=== PATIENT | female | born 1995 | race Caucasian/White ===

== ENCOUNTER 2019-06-25 20:39 | Emergency (ER) | payer OTHER ==
[~2019-06-25] VITALS: Ht 157.5 cm; Wt 69.0 kg
--- OUTSIDE RECORDS SUMMARY | ~2019-06-25 | XMS ---
Demographics + + + | Address | [address] | | | [place] [address] | + + + | Home Phone | | + + + | Preferred Language | Unknown | + + + | Marital Status | Never | + + + | Mormonism Affiliation | Unknown | + + + | Race | White | + + + | Ethnic Group | Not or | + + + Author + + + | Author | [facility] | + + + | Organization | [facility] | + + + | Address | [address] | | | [place] [address] | + + + | Phone | | + + + Care Team Providers + + + + | Care Equipment Validation Engineer Name | Role | Phone | + + + + | Kandace Martin PCP | | + + + + | Magi Mejia | PreferredProvider | | + + + + Allergies and Adverse Reactions + + +-------+ | Name | Reaction | Notes | + + +-------+ | Codeine Sulfate | | | + + +-------+ Plan of Treatment Not available. Medications +--------+ | Active | +--------+ + + + + + + | Name | Start Date | Estimated | SIG | Comments | | | | Completion Date | | | + + + + + + | fluoxetine 20 | 03/19/2017 | | take 1 capsule | | | mg oral capsule | | | (20 mg) by oral | | | | | | route once | | | | | | daily in the | | | | | | evening for 30 | | | | | | days | | + + + + + + | pseudoephedrine | 03/20/2017 | 04/03/2017 | take 1 tablet | | | HCl 120 mg | | | (120 mg) by | | | oral tablet | | | oral route | | | extended | | | every 12 hours | | | release | | | as needed for | | | | | | 14 days | | + + + + + + +---------+ | | +---------+ + + + + + + | Name | Start Date | Expiration Date | SIG | Comments | + + + + + + | amoxicillin 500 | 02/23/2013 | 03/05/2013 | take 1 tablet | | | mg oral tablet | | | (500 mg) by | | | | | | oral route | | | | | | every 12 hours | | | | | | for 10 days | | + + + + + + | amoxicillin 875 | 03/24/2014 | 04/03/2014 | take 1 tablet | | | mg oral tablet | | | (875 mg) by | | | | | | oral route | | | | | | every 12 hours | | | | | | for 10 days | | + + + + + + | lactulose 10 | 06/05/2014 | 08/28/2014 | 30ml PO every | | | gram/15 mL oral | | | AM for 7 days. | | | solution | | | Then 15ml PO | | | | | | every AM for 21 | | | | | | days. | | + + + + + + Problem List + +--------+ + | Description | Status | Onset | + +--------+ + | SinusArrhythmia | Active | 05/10/2012 | + +--------+ + | Behavioral Problems | Active | 07/29/2012 | + +--------+ + | Learning Disability | Active | 07/29/2012 | + +--------+ + | Depression | Active | 07/29/2012 | + +--------+ + Vital Signs +-----+-----+-----+-----+-----+-----+-----+-----+-----+----+-----+-----+-----+-----+ | Tristin | Marcial | BP- | BP- | HR( | RR( | Tem | WT | HT | HC | BMI | BSA | BMI | O2 | | e | e | Sys | Lindsay | bpm | rpm | p | | | | | | | Sat | | | | (mm | (mm | ) | ) | | | | | | | Per | (%) | | | | [Hg | [Hg | | | | | | | | | yunier | | | | | ] | ]) | | | | | | | | | til | | | | | | | | | | | | | | | e | | +-----+-----+-----+-----+-----+-----+-----+-----+-----+----+-----+-----+-----+-----+ | 9/2 | 11: | 124 | 74 | 78 | 18 | 96. | 132 | 62. | | 23. | 1.6 | 72. | | | 1/2 | 54: | | mmH | bpm | rpm | 8 F | | 25 | | 95 | 2 | 5 % | | | 017 | 00 | mmH | g | | | | lbs | in | | kg/ | m2 | | | | | AM | g | | | | | | | | m2 | | | | +-----+-----+-----+-----+-----+-----+-----+-----+-----+----+-----+-----+-----+-----+ | 3/2 | 4:5 | 100 | 70 | 72 | 30 | 98. | 126 | 61. | | 23. | 1.5 | 67. | 100 | | 1/2 | 3:0 | | mmH | bpm | rpm | 2 F | | 75 | | 232 | 78 | 9 % | % | | 017 | 0 | mmH | g | | | | lbs | in | | 4 | m | | | | | PM | g | | | | | | | | kg/ | | | | | | | | | | | | | | | m | | | | +-----+-----+-----+-----+-----+-----+-----+-----+-----+----+-----+-----+-----+-----+ | 9/2 | 11: | 120 | 60 | 80 | 22 | 97. | 124 | | | | | | | | 1/2 | 38: | | mmH | bpm | rpm | 8 F | | | | | | | | | 016 | 00 | mmH | g | | | | lbs | | | | | | | | | AM | g | | | | | | | | | | | | +-----+-----+-----+-----+-----+-----+-----+-----+-----+----+-----+-----+-----+-----+ | 3/1 | 10: | 128 | 70 | 70 | 16 | 99 | 118 | 62. | | 21. | 1.5 | 49. | | | 7/2 | 57: | | mmH | bpm | rpm | F | | 5 | | 238 | 363 | 7 % | | | 016 | 00 | mmH | g | | | | lbs | in | | 3 | | | | | | AM | g | | | | | | | | kg/ | m | | | | | | | | | | | | | | m | | | | +-----+-----+-----+-----+-----+-----+-----+-----+-----+----+-----+-----+-----+-----+ | 1/2 | 11: | 108 | 58 | 80 | 20 | 98. | 117 | 62 | | 21. | 1.5 | 52. | | | 1/2 | 20: | | mmH | bpm | rpm | 5 F | | in | | 40 | 2 | 4 % | | | 016 | 00 | mmH | g | | | | lbs | | | kg/ | m2 | | | | | AM | g | | | | | | | | m2 | | | | +-----+-----+-----+-----+-----+-----+-----+-----+-----+----+-----+-----+-----+-----+ | 12/ | 12: | 120 | 70 | 70 | 20 | 99 | 120 | 62. | | 21. | 1.5 | 57. | | | 9/2 | 16: | | mmH | bpm | rpm | F | | 25 | | 772 | 462 | 4 % | | | 015 | 00 | mmH | g | | | | lbs | in | | 1 | | | | | | PM | g | | | | | | | | kg/ | m | | | | | | | | | | | | | | m | | | | +-----+-----+-----+-----+-----+-----+-----+-----+-----+----+-----+-----+-----+-----+ | 12/ | 9:4 | 130 | 80 | 100 | 16 | 98. | 116 | 62. | | 21. | 1.5 | 53. | 100 | | 2/2 | 2:0 | | mmH | | rpm | 3 F | | 25 | | 05 | 2 | 7 % | % | | 014 | 0 | mmH | g | bpm | | | lbs | in | | kg/ | m2 | | | | | AM | g | | | | | | | | m2 | | | | +-----+-----+-----+-----+-----+-----+-----+-----+-----+----+-----+-----+-----+-----+ | 8/2 | 2:3 | 110 | 72 | 96 | 18 | 99. | 120 | 62 | | 21. | 1.5 | 70 | 98 | | 8/2 | 3:0 | | mmH | bpm | rpm | 5 F | | in | | 948 | 431 | % | % | | 013 | 0 | mmH | g | | | | lbs | | | 1 | | | | | | PM | g | | | | | | | | kg/ | m | | | | | | | | | | | | | | m | | | | +-----+-----+-----+-----+-----+-----+-----+-----+-----+----+-----+-----+-----+-----+ | 4/1 | 8:2 | 110 | 72 | 76 | 16 | 98. | 117 | 62. | | 21. | 1.5 | 63. | 100 | | 0/2 | 4:0 | | mmH | bpm | rpm | 3 F | | 5 | | 06 | 3 | 5 % | % | | 013 | 0 | mmH | g | | | | lbs | in | | kg/ | m2 | | | | | AM | g | | | | | | | | m2 | | | | +-----+-----+-----+-----+-----+-----+-----+-----+-----+----+-----+-----+-----+-----+ | 2/1 | 11: | 122 | 62 | 90 | 20 | 97. | 116 | 62 | | 21. | 1.5 | 66. | 98 | | 1/2 | 33: | | mmH | bpm | rpm | 2 F | | in | | 216 | 171 | 1 % | % | | 013 | 00 | mmH | g | | | | lbs | | | 5 | | | | | | AM | g | | | | | | | | kg/ | m | | | | | | | | | | | | | | m | | | | +-----+-----+-----+-----+-----+-----+-----+-----+-----+----+-----+-----+-----+-----+ | 11/ | 9:1 | 96 | 68 | 90 | 20 | 96. | 117 | 62. | | 21. | 1.5 | 68 | 98 | | 12/ | 4:0 | mmH | mmH | bpm | rpm | 1 F | | 2 | | 26 | 3 | % | % | | 201 | 0 | g | g | | | | lbs | in | | kg/ | m2 | | | | 2 | AM | | | | | | | | | m2 | | | | +-----+-----+-----+-----+-----+-----+-----+-----+-----+----+-----+-----+-----+-----+ | 11/ | 10: | 110 | 76 | 98 | | | | | | | | | | | 1/2 | 03: | | mmH | bpm | | | | | | | | | | | 012 | 00 | mmH | g | | | | | | | | | | | | | AM | g | | | | | | | | | | | | +-----+-----+-----+-----+-----+-----+-----+-----+-----+----+-----+-----+-----+-----+ | 11/ | 9:5 | 114 | 64 | 77 | | | | | | | | | | | 1/2 | 6:0 | | mmH | bpm | | | | | | | | | | | 012 | 0 | mmH | g | | | | | | | | | | | | | AM | g | | | | | | | | | | | | +-----+-----+-----+-----+-----+-----+-----+-----+-----+----+-----+-----+-----+-----+ | 11/ | 9:4 | 116 | 62 | 64 | | | | | | | | | | | 1/2 | 9:0 | | mmH | bpm | | | | | | | | | | | 012 | 0 | mmH | g | | | | | | | | | | | | | AM | g | | | | | | | | | | | | +-----+-----+-----+-----+-----+-----+-----+-----+-----+----+-----+-----+-----+-----+ | 11/ | 9:0 | 112 | 63 | 74 | 20 | 99. | 115 | 62 | | 21. | 1.5 | 66. | 98 | | 1/2 | 4:0 | | mmH | bpm | rpm | 2 F | .25 | in | | 08 | 1 | 4 % | % | | 012 | 0 | mmH | g | | | | | | | kg/ | m2 | | | | | AM | g | | | | | lbs | | | m2 | | | | +-----+-----+-----+-----+-----+-----+-----+-----+-----+----+-----+-----+-----+-----+ | 2/1 | 1:1 | 118 | 64 | 90 | 20 | 100 | 110 | | | | | | 99 | | 3/2 | 6:0 | | mmH | bpm | rpm | .1 | .75 | | | | | | % | | 012 | 0 | mmH | g | | | F | | | | | | | | | | PM | g | | | | | lbs | | | | | | | +-----+-----+-----+-----+-----+-----+-----+-----+-----+----+-----+-----+-----+-----+ Social History + + + + | Name | Description | Comments | + + + + | Tobacco | Never smoker | | + + + + | Lives With | | father (Jayy) mother | | | | (Crystal) brothbuck Haley | + + + + History of Procedures + + + + | Date Ordered | Description | Order Status | + + + + | 05/30/2014 9:47 AM | URINALYSIS NONAUTO W/O | Reviewed | | | SCOPE | | + + + + | 05/30/2014 12:00 AM | IMMUNIZATION ADMIN | Reviewed | + + + + | 05/30/2014 12:00 AM | MENINGOCOCCAL VACCINE IM | Reviewed | + + + + | 05/30/2014 12:00 AM | X-RAY EXAM OF ABDOMEN | Reviewed | + + + + | 04/08/2010 12:00 AM | IMMUNIZATION ADMIN | Reviewed | + + + + | 08/11/2011 12:00 AM | MEASURE BLOOD OXYGEN LEVEL | Reviewed | + + + + | 08/11/2011 12:00 AM | CULTURE SCREEN ONLY | Reviewed | + + + + | 08/11/2011 12:00 AM | 1-Rapid Strep | Reviewed | + + + + | 08/11/2011 12:00 AM | 1-Rapid Flu A&B | Reviewed | + + + + | 04/29/2012 12:00 AM | MEASURE BLOOD OXYGEN LEVEL | Reviewed | + + + + | 04/29/2012 12:00 AM | ELECTROCARDIOGRAM COMPLETE | Reviewed | + + + + | 04/29/2012 12:00 AM | Holter monitoring, 24-hour | Reviewed | + + + + | 05/10/2012 12:00 AM | MEASURE BLOOD OXYGEN LEVEL | Reviewed | + + + + | 05/10/2012 12:00 AM | HPV VACCINE 4 VALENT IM | Reviewed | + + + + | 05/10/2012 12:00 AM | IMMUNIZATION ADMIN | Reviewed | + + + + | 07/20/2012 12:00 AM | HPV VACCINE 4 VALENT IM | Reviewed | + + + + | 11/30/2012 12:00 AM | HPV VACCINE 4 VALENT IM | Reviewed | + + + + | 02/23/2013 12:00 AM | MEASURE BLOOD OXYGEN LEVEL | Reviewed | + + + + | 02/23/2013 12:00 AM | Rapid Strep | Reviewed | + + + + | 03/19/2016 12:00 AM | FLU VAC NO PRSV 4 FEDERICA 3 | Reviewed | | | YRS+ | | + + + + | 03/19/2016 12:00 AM | IMMUNIZATION ADMIN | Reviewed | + + + + | 03/19/2016 12:00 AM | IMMUNIZATION ADMIN EACH ADD | Reviewed | + + + + | 03/19/2016 12:00 AM | Meningococcal B (P) | Reviewed | + + + + | 05/19/2016 12:00 AM | Meningococcal B (P) | Reviewed | + + + + | 05/19/2016 12:00 AM | IMMUNIZATION ADMIN | Reviewed | + + + + | 07/20/2012 12:00 AM | IMMUNIZATION ADMIN | Reviewed | + + + + | 09/16/2016 12:00 AM | IMMUNIZATION ADMIN | Reviewed | + + + + | 09/16/2016 12:00 AM | Meningococcal B (P) | Reviewed | + + + + | 11/30/2012 12:00 AM | IMMUNIZATION ADMIN | Reviewed | + + + + | 03/24/2014 12:00 AM | IAACORINAO STREPTOCOCCUS | Reviewed | | | GROUP A | | + + + + | 04/08/2010 12:00 AM | FLU VACCINE 3 YRS & > IM | Reviewed | + + + + Results Summary + + + | Date and Description | Results | + + + | 08/11/2011 12:00 AM | RESULT #1 no Group A beta streptococcus | | | after overnight incu RESULT #2 no group A | | | beta streptococcus after 2 days incubat | + + + | 05/30/2014 9:47 AM | Bilirub Ur Ql Strip neg Glucose Ur-sCnc | | | neg Hgb Ur Ql Strip neg Ketones Ur Ql | | | Strip 40 mod Nitrite Ur Ql Strip neg pH | | | Ur-LsCnc 6.0 Prot Ur Ql Strip neg Sp Gr Ur | | | Qn 1.020 Urobilinogen Ur-mCnc neg WBC Est | | | Ur Ql Strip neg | + + + History Of Immunizations +-------+-------+-------+------+-------+-------+-------+-------+-------+-------+-----+ | Name | Date | Mfg | Mfg | Trade | Lot# | Route | Inj | Vis | Vis | CVX | | | Admin | Name | Code | Name | | | | Given | Pub | | +-------+-------+-------+------+-------+-------+-------+-------+-------+-------+-----+ | Flu | 04/08 | sanof | PMC | Fluzo | [id number] | Intra | Right | 04/08 | 02/05/ | 999 | | 3+ | | i | | ne > | CA | muscu | | /2009 | 2009 | | | years | | paste | | 3 | | lar | Vastu | | | | | | | ur | | Years | | | s | | | | | | | | | | | | Later | | | | | | | | | | | | bev | | | | +-------+-------+-------+------+-------+-------+-------+-------+-------+-------+-----+ | Tdap | 03/24/ | Glaxo | SKB | BOOST | | Intra | Not | | | 999 | | | 2008 | Fortune | | ALEE | | muscu | Enter | 001 | 001 | | | | | Pierce | | | | lar | ed | | | | +-------+-------+-------+------+-------+-------+-------+-------+-------+-------+-----+ | HepB | 09/24/ | Not | NE | Not | | Not | Not | | | 999 | | | 1998 | Enter | | Enter | | Enter | Enter | 001 | 001 | | | | | ed | | ed | | ed | ed | | | | +-------+-------+-------+------+-------+-------+-------+-------+-------+-------+-----+ | HepB | | Not | NE | Not | | Not | Not | | | 999 | | | 998 | Enter | | Enter | | Enter | Enter | 001 | 001 | | | | | ed | | ed | | ed | ed | | | | +-------+-------+-------+------+-------+-------+-------+-------+-------+-------+-----+ | HepB | 05/01/ | Not | NE | Not | | Not | Not | 0 | 0 | 999 | | | 1998 | Enter | | Enter | | Enter | Enter | 001 | 001 | | | | | ed | | ed | | ed | ed | | | | +-------+-------+-------+------+-------+-------+-------+-------+-------+-------+-----+ | IPV | | Not | NE | Not | | Not | Not | 0 | 0 | 999 | | | 998 | Enter | | Enter | | Enter | Enter | 001 | 001 | | | | | ed | | ed | | ed | ed | | | | +-------+-------+-------+------+-------+-------+-------+-------+-------+-------+-----+ | IPV | | Not | NE | Not | | Not | Not | 0 | | 999 | | | 998 | Enter | | Enter | | Enter | Enter | 001 | 001 | | | | | ed | | ed | | ed | ed | | | | +-------+-------+-------+------+-------+-------+-------+-------+-------+-------+-----+ | IPV | 05/01/ | Not | NE | Not | | Not | Not | | | 999 | | | 1998 | Enter | | Enter | | Enter | Enter | 001 | 001 | | | | | ed | | ed | | ed | ed | | | | +-------+-------+-------+------+-------+-------+-------+-------+-------+-------+-----+ | IPV | | Not | NE | Not | | Not | Not | 0 | | 999 | | | 002 | Enter | | Enter | | Enter | Enter | 001 | 001 | | | | | ed | | ed | | ed | ed | | | | +-------+-------+-------+------+-------+-------+-------+-------+-------+-------+-----+ | MMR | | Merck | MSD | MMR | | Not | Not | | | 999 | | | 999 | & | | II | | Enter | Enter | 001 | 001 | | | | | Co., | | | | ed | ed | | | | | | | Inc. | | | | | | | | | +-------+-------+-------+------+-------+-------+-------+-------+-------+-------+-----+ | MMR | | Merck | MSD | MMR | | Not | Not | | | 999 | | | 002 | & | | II | | Enter | Enter | 001 | 001 | | | | | Co., | | | | ed | ed | | | | | | | Inc. | | | | | | | | | +-------+-------+-------+------+-------+-------+-------+-------+-------+-------+-----+ | Varic | | Merck | MSD | Variv | | Not | Not | | | 999 | | oskar | 999 | & | | ax | | Enter | Enter | 001 | 001 | | | | | Co., | | | | ed | ed | | | | | | | Inc. | | | | | | | | | +-------+-------+-------+------+-------+-------+-------+-------+-------+-------+-----+ | Varic | 05/12 | Merck | MSD | Variv | | Not | Not | 0 | | 999 | | oskar | /2005 | & | | ax | | Enter | Enter | 001 | 001 | | | | | Co., | | | | ed | ed | | | | | | | Inc. | | | | | | | | | +-------+-------+-------+------+-------+-------+-------+-------+-------+-------+-----+ | DTaP | | Not | NE | Not | | Not | Not | | | 999 | | | 998 | Enter | | Enter | | Enter | Enter | 001 | 001 | | | | | ed | | ed | | ed | ed | | | | +-------+-------+-------+------+-------+-------+-------+-------+-------+-------+-----+ | DTaP | | Not | NE | Not | | Not | Not | | | 999 | | | 998 | Enter | | Enter | | Enter | Enter | 001 | 001 | | | | | ed | | ed | | ed | ed | | | | +-------+-------+-------+------+-------+-------+-------+-------+-------+-------+-----+ | DTaP | 05/01/ | Not | NE | Not | | Not | Not | | | 999 | | | 1998 | Enter | | Enter | | Enter | Enter | 001 | 001 | | | | | ed | | ed | | ed | ed | | | | +-------+-------+-------+------+-------+-------+-------+-------+-------+-------+-----+ | DTaP | 12/11/ | Not | NE | Not | | Not | Not | 0 | | 999 | | | 1999 | Enter | | Enter | | Enter | Enter | 001 | 001 | | | | | ed | | ed | | ed | ed | | | | +-------+-------+-------+------+-------+-------+-------+-------+-------+-------+-----+ | DTaP | | Not | NE | Not | | Not | Not | | | 999 | | | 002 | Enter | | Enter | | Enter | Enter | 001 | 001 | | | | | ed | | ed | | ed | ed | | | | +-------+-------+-------+------+-------+-------+-------+-------+-------+-------+-----+ | Menac | 06/11 | sanof | PMC | Menac | | Intra | Not | | | 999 | | tra | /2008 | i | | tra | | muscu | Enter | 001 | 001 | | | | | paste | | | | lar | ed | | | | | | | ur | | | | | | | | | +-------+-------+-------+------+-------+-------+-------+-------+-------+-------+-----+ | Hib | | Not | NE | Not | | Not | Not | 0 | | 999 | | | 998 | Enter | | Enter | | Enter | Enter | 001 | 001 | | | | | ed | | ed | | ed | ed | | | | +-------+-------+-------+------+-------+-------+-------+-------+-------+-------+-----+ | Hib | | Not | NE | Not | | Not | Not | | | 999 | | | 998 | Enter | | Enter | | Enter | Enter | 001 | 001 | | | | | ed | | ed | | ed | ed | | | | +-------+-------+-------+------+-------+-------+-------+-------+-------+-------+-----+ | Hib | 05/01/ | Not | NE | Not | | Not | Not | | | 999 | | | 1998 | Enter | | Enter | | Enter | Enter | 001 | 001 | | | | | ed | | ed | | ed | ed | | | | +-------+-------+-------+------+-------+-------+-------+-------+-------+-------+-----+ | Hib | | Not | NE | Not | | Not | Not | | | 999 | | | 999 | Enter | | Enter | | Enter | Enter | 001 | 001 | | | | | ed | | ed | | ed | ed | | | | +-------+-------+-------+------+-------+-------+-------+-------+-------+-------+-----+ | Hep A | | Not | NE | Not | | Not | Not | | | 999 | | | 002 | Enter | | Enter | | Enter | Enter | 001 | 001 | | | | | ed | | ed | | ed | ed | | | | +-------+-------+-------+------+-------+-------+-------+-------+-------+-------+-----+ | Hep A | | Not | NE | Not | | Not | Not | | | 999 | | | 003 | Enter | | Enter | | Enter | Enter | 001 | 001 | | | | | ed | | ed | | ed | ed | | | | +-------+-------+-------+------+-------+-------+-------+-------+-------+-------+-----+ | FluMi | 05/16 | Medim | MED | Flu-N | | Intra | Not | | | 999 | | st | /2005 | mune, | | jose m | | nasal | Enter | 001 | 001 | | | | | Inc. | | | | | ed | | | | +-------+-------+-------+------+-------+-------+-------+-------+-------+-------+-----+ | FluMi | | Medim | MED | Flu-N | | Intra | Not | | | 999 | | st | 006 | mune, | | jose m | | nasal | Enter | 001 | 001 | | | | | Inc. | | | | | ed | | | | +-------+-------+-------+------+-------+-------+-------+-------+-------+-------+-----+ | Flu | 03/24/ | sanof | PMC | Fluzo | | Intra | Not | | | 999 | | 3+ | 2010 | i | | ne > | | muscu | Enter | 001 | 001 | | | years | | paste | | 3 | | lar | ed | | | | | | | ur | | Years | | | | | | | +-------+-------+-------+------+-------+-------+-------+-------+-------+-------+-----+ | Flu | 04/22 | Not | NE | Not | | Not | Not | | | 141 | | 3+ | /2011 | Enter | | Enter | | Enter | Enter | 001 | 001 | | | years | | ed | | ed | | ed | ed | | | | +-------+-------+-------+------+-------+-------+-------+-------+-------+-------+-----+ | HPV | 12 | Merck | MSD | GARDA | [id number] | Intra | Left | 05/10 | | 62 | | | | & | | GRANT | 49 | muscu | Delto | | 900 | | | | | Co., | | | | lar | id | | | | | | | Inc. | | | | | | | | | +-------+-------+-------+------+-------+-------+-------+-------+-------+-------+-----+ | HPV | 05/10 | Merck | MSD | GARDA | [id number] | Intra | Left | 05/10 | | 62 | | | | & | | GRANT | 49 | muscu | Delto | | 900 | | | | | Co., | | | | lar | id | | | | | | | Inc. | | | | | | | | | +-------+-------+-------+------+-------+-------+-------+-------+-------+-------+-----+ | HPV | 07/20/ | Merck | MSD | GARDA | [id number] | Intra | Left | 07/20/ | 08/20/ | 62 | | | 2012 | & | | GRANT | 37 | muscu | Delto | 2012 | 2011 | | | | | Co., | | | | lar | id | | | | | | | Inc. | | | | | | | | | +-------+-------+-------+------+-------+-------+-------+-------+-------+-------+-----+ | HPV | 07/20/ | Merck | MSD | GARDA | [id number] | Intra | Left | 07/20/ | 08/20/ 62 | | | 2012 | & | | GRANT | 37 | muscu | Delto | 2012 | 2011 | | | | | Co., | | | | lar | id | | | | | | | Inc. | | | | | | | | | +-------+-------+-------+------+-------+-------+-------+-------+-------+-------+-----+ | HPV | | Merck | MSD | GARDA | [id number] | Intra | Left | | | 62 | | | 013 | & | | GRANT | 03 | muscu | Delto | 013 | 900 | | | | | Co., | | | | lar | id | | | | | | | Inc. | | | | | | | | | +-------+-------+-------+------+-------+-------+-------+-------+-------+-------+-----+ | Menac | 05/30/ | sanof | PMC | Menac | [id number] | Intra | Left | 05/30/ | 04/11 | 136 | | tra | 2013 | i | | tra | AC | muscu | Arm | 2013 | | | | | | paste | | | | lar | | | | | | | | ur | | | | | | | | | +-------+-------+-------+------+-------+-------+-------+-------+-------+-------+-----+ | Trume | 03/19/ | Pfize | PFR | Trume | [id number] | Intra | Left | 03/19/ | 02/09/ | 162 | | mario | 2015 | r, | | mario | 2 | muscu | Upper | 2015 | 2014 | | | MenB | | Inc. | | | | lar | | | | | | | | | | | | | Delto | | | | | | | | | | | | id | | | | +-------+-------+-------+------+-------+-------+-------+-------+-------+-------+-----+ | Flu | 03/19/ | sanof | PMC | Fluzo | [id number] | Intra | Right | 03/19/ | | 150 | | 3+ | 2015 | i | | ne | 9LA | muscu | | 2015 | 015 | | | years | | paste | | Quadr | | lar | Upper | | | | | | | ur | | ivale | | | | | | | | | | | | nt | | | Delto | | | | | | | | | | | | id | | | | +-------+-------+-------+------+-------+-------+-------+-------+-------+-------+-----+ | Trume | 05/19 | Pfize | PFR | Trume | [id number] | Intra | Left | 05/19 | 02/09/ | 162 | | mario | /2015 | r, | | mario | 7 | muscu | Delto | /2015 | 2014 | | | MenB | | Inc. | | | | lar | id | | | | +-------+-------+-------+------+-------+-------+-------+-------+-------+-------+-----+ | Trume | 09/16/ | Pfize | PFR | Trume | [id number] | Intra | Left | 09/16/ | 02/09/ | 162 | | mario | 2017 | r, | | mario | 6 | muscu | Upper | 2016 | 2014 | | | MenB | | Inc. | | | | lar | Arm | | | | +-------+-------+-------+------+-------+-------+-------+-------+-------+-------+-----+ History of Past Illness + + + + | Name | Date of Onset | Comments | + + + + | Cesaren | | | + + + + | Vision problems | | sees opto | + + + + | Arrhythmia | 04/29/2012 | | + + + + | SinusArrhythmia | 05/10/2012 | | + + + + | Behavioral Problems | 07/29/2012 | | + + + + | Learning Disability | 07/29/2012 | | + + + + | Depression | 07/29/2012 | | + + + + | Pharyngitis, Acute | Aug 11 2011 1:00PM | | + + + + | HPV (Gardisil) | May 10 2012 8:59AM | | + + + + | Chest Pain | Apr 29 2012 9:05AM | | + + + + | SinusArrhythmia | May 10 2012 8:59AM | | + + + + | HPV (Gardisil) | Jul 20 2012 4:04PM | | + + + + | Behavioral Problems | Jul 29 2012 11:31AM | | + + + + | Learning Disability | Jul 29 2012 11:31AM | | + + + + | Depression | Jul 29 2012 11:31AM | | + + + + | Behavioral Problems | Aug 09 2012 11:29AM | | + + + + | Learning Disability | Aug 09 2012 11:29AM | | + + + + | Well Child Check | Oct 06 2012 8:06AM | | + + + + | Behavioral Problems | Oct 06 2012 8:06AM | | + + + + | Learning Disability | Oct 06 2012 8:06AM | | + + + + | HPV (Gardisil) | Nov 30 2012 3:02PM | | + + + + | Pharyngitis, Streptococcal | Feb 23 2013 2:37PM | | + + + + | Pharyngitis, Acute | Mar 24 2014 10:37AM | | + + + + | Menactra 11 & UP | May 30 2014 9:22AM | | + + + + | Abdominal Pain, Generalized | May 30 2014 9:22AM | | + + + + | Constipation | May 30 2014 9:22AM | | + + + + | Heart palpitations | May 30 2014 9:22AM | | + + + + | Depression, acute, | Jun 06 2015 12:15PM | | | unspecified | | | + + + + | Depression | Jul 19 2015 11:20AM | | + + + + | Depression | Sep 13 2015 10:45AM | | + + + + | Depression | Mar 19 2016 11:37AM | | + + + + | Influenza 3 Yr and up | Mar 19 2016 11:37AM | | + + + + | Trumenba | Mar 19 2016 11:37AM | | + + + + | Trumenba | May 19 2016 3:10PM | | + + + + | Trumenba | Sep 16 2016 4:47PM | | + + + + | Depression | Sep 16 2016 4:47PM | | + + + + | Depression | Mar 19 2017 11:50AM | | + + + + | URI (upper respiratory | Mar 19 2017 11:50AM | | | infection) | | | + + + + Payers + + + +--------+ +---------+ + | Insurance | Company | Plan Name | Plan | Policy | Policy | Start Date | | Name | Name | | Number | Number | Group | | | | | | | | Number | | + + + +--------+ +---------+ + | | [employer] | [employer] | | [id number] | | Thursday, | | | Health | Health | | | | March 29, | | | | | | | | 2009 | + + + +--------+ +---------+ + History of Encounters + + + + | Visit Date | Visit Type | Provider | + + + + | 03/19/2017 | Consult | Kandace Martin MD | + + + + | 09/16/2016 | Consult | Kandace Martin MD | + + + + | 05/19/2016 | Walk In | Nurse Nurse | + + + + | 03/19/2016 | Consult | Kandace Martin MD | + + + + | 09/13/2015 | Consult | Kandace Martin MD | + + + + | 07/19/2015 | Consult | Kandace Martin MD | + + + + | 06/06/2015 | Consult | Kandace Martin MD | + + + + | 05/30/2014 | Acute Illness | | + + + + | 05/30/2014 | Acute Illness | Ann LiuAlonzo LAWRENCE | + + + + | 03/24/2014 | Walk In | Nurse Nurse | + + + + | 02/23/2013 | Acute Illness | Ann LiuAlonzo LAWRENCE | + + + + | 11/30/2012 | Walk In | Nurse Nurse | + + + + | 10/06/2012 | Well Child Check | Kandace Martin MD | + + + + | 08/09/2012 | Consult | Kandace Martin MD | + + + + | 07/29/2012 | Consult | Kandace Martin MD | + + + + | 07/20/2012 | Walk In | Nurse Nurse | + + + + | 05/10/2012 | Office Visit | Kandace Martin MD | + + + + | 04/29/2012 | Acute Illness | Kandace Martin MD | + + + + | 08/11/2011 | Same Day Appt | Kandace Martin MD | + + + + | 04/08/2010 | Walk In | Nurse | + + + +"
--- OUTSIDE RECORDS SUMMARY | ~2019-06-25 | XMS | Clinical Summary ---
Demographics + + + | Address | [address] [address] [address] | | | [place] [address] | + + + | Home Phone | | + + + | Preferred Language | Unknown | + + + | Marital Status | Single | + + + | Samaritan Affiliation | Unknown | + + + | Race | White | + + + | Ethnic Group | Not or | + + + Author + + + | Author | [facility] | + + + | Organization | [facility] | + + + | Address | Unknown | + + + | Phone | Unavailable | + + + Support + + + + + | Name | Relationship | Address | Phone | + + + + + | Jayy & Crystal | ECON | [address] | | | [place] | | [place], [place] | | | | | [address] | | + + + + + Care Team Providers + +------+ + | Care Environmental Systems Coordinator Name | Role | Phone | + +------+ + | Ann VieiraP | PCP | | + +------+ + Source Comments EBONY is fully live on both EpicCare Ambulatory and EpicCare InPatient.[facility] Allergies + + + + + + | Active Allergy | Reactions | Severity | Noted | Comments | | | | | Date | | + + + + + + | Codeine | Rash | | 07/19/19 | | | | | | 15 | | + + + + + + Medications + + + +---------+------+------+-------+ | Medication | Sig | Dispensed | Refills | Star | End | Statu | | | | | | t | Date | s | | | | | | Date | | | + + + +---------+------+------+-------+ | | Take by mouth. | | 0 | | | Activ | | NORGESTIMATE-ETHINYL | | | | | | e | | ESTRADIOL | | | | | | | | (PACHECO, 28, ORAL) | | | | | | | + + + +---------+------+------+-------+ Active Problems No known active problems Social History + +-------+ +--------+------+ | Tobacco Use | Types | Packs/Day | Years | Date | | | | | Used | | + +-------+ +--------+------+ | Never Smoker | | | | | + +-------+ +--------+------+ + + +---------+ + | Alcohol Use | Drinks/Week | oz/Week | Comments | + + +---------+ + | Not Asked | | | | + + +---------+ + + + + | Sex Assigned at | Date Recorded | | | | + + + | Not on file | | + + + + + + + | Job Start Date | Occupation | Industry | + + + + | Not on file | Not on file | Not on file | + + + + + + + + | Travel History | Travel Start | Travel End | + + + + + + | No recent travel history available. | + + Last Filed Vital Signs + + + + + | Vital Sign | Reading | Time Taken | Comments | + + + + + | Blood Pressure | 128/64 | 07/19/2014 2:27 PM | | | | | PST | | + + + + + | Pulse | 76 | 07/19/2014 2:27 PM | | | | | PST | | + + + + + | Temperature | - | - | | + + + + + | Respiratory Rate | 16 | 07/19/2014 2:27 PM | | | | | PST | | + + + + + | Oxygen Saturation | 99% | 07/19/2014 2:27 PM | | | | | PST | | + + + + + | Inhaled Oxygen | - | - | | | Concentration | | | | + + + + + | Weight | 53.2 kg (117 lb 4 | 07/19/2014 2:27 PM | | | | oz) | PST | | + + + + + | Height | 157.5 cm (5' 2") | 07/19/2014 2:27 PM | | | | | PST | | + + + + + | Body Mass Index | 21.45 | 07/19/2014 2:27 PM | | | | | PST | | + + + + + Plan of Treatment + + + + + | Health Maintenance | Due Date | Last Done | Comments | + + + + + | Influenza (Flu) | | | | | vaccination (#1) | 9 | | | + + + + + | Pneumococcal | Aged Out | | No longer eligible | | vaccination | | | based on patient's | | | | | age to complete this | | | | | topic | + + + + + Results Not on filefrom Last 3 Months Insurance + +--------+ +--------+ + +------+ | Payer | Benefi | Subscriber | Effect | Phone | Address | Type | | | t Plan | ID | darren | | | | | | / | | Dates | | | | | | Group | | | | | | + +--------+ +--------+ + +------+ | MODA [employer] | MODA | [phone] | | [phone] | [address] | PPO | | | OEBB | | [phone] | [phone] | | | | [place] | | esent | | [place], | | | | [place] | | | | [place] [address] | | + +--------+ +--------+ + +------+ + +--------+ +--------+ + + | Guarantor Name | Accoun | Relation to | Date | Phone | Billing Address | | | t Type | Patient | of | | | | | | | | | | + +--------+ +--------+ + + | NIKOLAS VELASQUEZ | Person | Mother | [birth year] | | [address] | | | al/Fam | | 1958 | [phone] | [place] [address] | | | romana | | | 9 (Home) | | + +--------+ +--------+ + +
--- OUTSIDE RECORDS SUMMARY | ~2019-06-25 | XMS ---
Demographics + + + | Address | [address] | | | [place] [address] | + + + | Home Phone | | + + + | Preferred Language | Unknown | + + + | Marital Status | Never | + + + | Quaker Affiliation | Unknown | + + + | Race | White | + + + | Ethnic Group | Not or | + + + Author + + + | Author | [facility] | + + + | Organization | [facility] | + + + | Address | [address] | | | [place] [address] | + + + | Phone | | + + + Care Team Providers + + + + | Care Electron Beam Photo Mask Maker Name | Role | Phone | + + + + | Ann Vieira PCP | | + + + + [...] + + + | fluoxetine 20 | 10/27/2017 | 03/26/2018 | TAKE ONE | | | mg oral capsule | | | CAPSULE BY | | | | | | MOUTH EVERY | | | | | | EVENING for 30 | | | | | | days | | + + + + + + | triamcinolone | 11/11/2017 | 12/09/2017 | apply to | | | acetonide 0.1 % | | | affected area | | | topical | | | by external | | | ointment | | | route 2 times a | | | | | | day for 7 days | | + + + + [...] + + + + + + | cephalexin 500 | 10/27/2017 | 11/06/2017 | take 1 tablet | | | mg oral tablet | | | by oral route 3 | | | | | | times a day | | | | | | for 10 days | | + + + + + + | hydroxyzine HCl | 11/11/2017 | 11/25/2017 | take 1 tablet | | | 25 mg oral | | | (25 mg) by oral | | | tablet | | | route Q 8 hrs | | | | | | prn itching | | + + + + + [...] | | e | | +-----+-----+-----+-----+-----+-----+-----+-----+-----+----+-----+-----+-----+-----+ | 5/1 | 4:4 | | | 76 | 20 | 97. | 129 | 62 | | 23. | 1.5 | 0 % | 99 | | 6/2 | 3:0 | | | bpm | rpm | 6 F | | in | | 594 | 999 | | % | | 018 | 0 | | | | | | lbs | | | 2 | | | | | | PM | | | | | | | | | kg/ | m | | | | | | | | | | | | | | m | | | | +-----+-----+-----+-----+-----+-----+-----+-----+-----+----+-----+-----+-----+-----+ | 5/1 | 3:1 | 110 | 62 | 76 | 16 | 98. | 130 | | | | | | 98 | | /20 | 4:0 | | mmH | bpm | rpm | 8 F | .5 | | | | | | % | | 18 | 0 | mmH | g | | | | lbs | | | | | | | | | PM | g | | | | | | | | | | | | +-----+-----+-----+-----+-----+-----+-----+-----+-----+----+-----+-----+-----+-----+ | 3/2 | 4:2 | 124 | 78 | 80 | 24 | 98. | 129 | 62 | | 23. | 1.6 | 0 % | | | 0/2 | 7:0 | | mmH | bpm | rpm | 5 F | .5 | in | | 685 | 03 | | | | 018 | 0 | mmH | g | | | | lbs | | | 6 | m | | | | | [...] F | .25 | in | | 079 | 122 | 4 % | % | | 012 | 0 | mmH | g | | | | | | | 3 | | | | | | AM | g | | | | | lbs | | | kg/ | m | | | | | | | | | | | | | | m | | | | +-----+-----+-----+-----+-----+-----+-----+-----+-----+----+-----+-----+-----+-----+ | 2/1 [...] (Jayy) mother | | | | (Crystal) brother Tera | + + + + History of [...] + + | 03/24/2014 12:00 AM | IAADIADOO STREPTOCOCCUS | Reviewed | | | GROUP A | | + + + + | 04/08/2010 12:00 AM | FLU VACCINE 3 YRS & > IM | Reviewed | + + + + | 11/11/2017 12:00 AM | CULTR BACTERIA EXCEPT BLOOD | Reviewed | + + + + [...] Ql Strip neg | + + + | 11/11/2017 5:32 PM | RESULT #1 11/12/2017 08:10 AM RESULT #1 No | | | organisms seen. RESULT #1 11/12/2017 | | | 11:15 AM RESULT #1 No growth after | | | overnight incubation. RESULT #2 11/13/2017 | | | 07:32 AM RESULT #2 No growth after | | | further incubation. RESULT #3 11/14/2017 | | | 07:44 AM RESULT #3 No change in growth. | + + + History Of Immunizations [...] 02/05/ | 999 | | 3+ | /2009 | i | | ne > | [...] 0 | | 999 | | | 1998 [...] MMR | | Merck | MSD | M-M-R | | Not | Not | | [...] MMR | | Merck | MSD | M-M-R | | Not | Not | | [...] Varic | | Merck | MSD | VARIV | | Not | Not | | | 999 | | oskar | 999 | & | | AX | | Enter | Enter | 001 | 001 | | | | | Co., | | | | ed | ed | | | | | | | Inc. | | | | | | | | | +-------+-------+-------+------+-------+-------+-------+-------+-------+-------+-----+ | Varic | 05/12 | Merck | MSD | VARIV | | Not | Not | | | 999 | | oskar | /2005 | & | | AX | | Enter | Enter | 001 [...] | | | 999 | | | 1999 | Enter | | Enter | | Enter | Enter | 001 | 001 | | | | | ed | | ed | | ed | ed | | | | +-------+-------+-------+------+-------+-------+-------+-------+-------+-------+-----+ | DTaP | | Not | NE | Not | | Not | Not | 0 | 0 | 999 | | | 002 | Enter | | Enter | | Enter | Enter | 001 | 001 | | | | | ed | | ed | | ed | ed | | | | +-------+-------+-------+------+-------+-------+-------+-------+-------+-------+-----+ | Menac | 06/11 | sanof | PMC | MENAC | | Intra | Not | 0 | 0 | 999 | | tra | /2008 | i | | TRA | | muscu | Enter | 001 [...] 0 | | 999 | | | 1998 | Enter | | Enter | | Enter | Enter | 001 | 001 | | | | | ed | | ed | | ed | ed | | | | +-------+-------+-------+------+-------+-------+-------+-------+-------+-------+-----+ | Hib | | Not | NE | Not | | Not | Not | 0 | | 999 | | | 999 [...] 0 | | 999 | | | 003 | Enter | | Enter | | Enter | Enter | 001 | 001 | | | | | ed | | ed | | ed | ed | | | | +-------+-------+-------+------+-------+-------+-------+-------+-------+-------+-----+ | FluMi | 05/16 | Medim | MED | Flu-N | | Intra | Not | 0 | | 999 | | st | [...] | | 141 | | 3+ | | Enter | | Enter | | Enter | Enter | 001 | 001 | | | years | | ed | | ed | | ed | ed | | | | +-------+-------+-------+------+-------+-------+-------+-------+-------+-------+-----+ | HPV | 11/12 | Merck | MSD | GARDA | [...] | muscu | Delto | 2012 | | | | | Co., | [...] | 05/30/ | sanof | PMC | MENAC | [id number] | Intra | Left | 05/30/ | 04/11 | 136 | | tra | 2013 | i | | TRA | AC | muscu | Arm | 2013 | /2010 | | | | | paste | [...] 02/09/ | 162 | | mario | 2016 | r, | | mario | 6 | muscu | Upper | 2016 | 2014 | | | MenB | | Inc. | | | | lar | Arm | | | | +-------+-------+-------+------+-------+-------+-------+-------+-------+-------+-----+ History of Past Illness + + + + | Name | Date of Onset | Comments | + + + + | Vision [...] + + + | Depression | Sep 15 2017 4:22PM | | + + + + | Folliculitis | Oct 27 2017 3:02PM | | + + + + | Eye strain, bilateral | Oct 27 2017 3:02PM | | + + + + | Pityriasis rosea | Nov 11 2017 4:30PM | | + + + + Payers [...] | | Moda | Moda | | [id number] | | Thursday, | | | Health | Health | | | | March 29, | | | | | | | | 2009 | + + + +--------+ +---------+ + History of Encounters + + + + | Visit Date | Visit Type | Provider | + + + + | 11/11/2017 | Day Appt | nAn LAWRENCE | + + + + | 10/27/2017 | Acute Illness | Kandace Martin MD | + + + + | 09/15/2017 | Consult | Kandace Martin MD | + + + + | 03/19/2017 [...] | 05/30/2014 | Acute Illness | Ann LAWRENCE | + + + + | [...] | 07/20/2012 | Walk In | Nurse Wolf | + + + + | 05/10/2012 | Office Visit | Kandace Martin MD | + + + + | 04/29/2012 | Acute Illness | Kandace Martin MD | + + + + | 08/11/2011 | Day Appt | Kandace Martin MD | + + + + | 04/08/2010 | Walk In | Nurse Nurse | + + + +"
--- OUTSIDE RECORDS SUMMARY | ~2019-06-25 | XMS ---
Demographics + + + | Address | [address] | | | [place] [address] | + + + | Home Phone | | + + + | Preferred Language | Unknown | + + + | Marital Status | Never | + + + | Sikh Affiliation | Unknown | + + + | Race | White | + + + | Ethnic Group | Not or | + + + Author + + + | Author | [facility] | + + + | Organization | [facility] | + + + | Address | [address] | | | [place] [address] | + + + | Phone | | + + + Care Team Providers + + + + | Care Casket Coverer Name | Role | Phone | + [...] e | | +-----+-----+-----+-----+-----+-----+-----+-----+-----+----+-----+-----+-----+-----+ | 5/1 | 3:1 [...] | F | | 5 | | 24 | 363 | 7 % | | | 016 | 00 | mmH | g | | | | lbs | in | | kg/ | | | | | | AM | g | | | | | | | | m2 | m | | | +-----+-----+-----+-----+-----+-----+-----+-----+-----+----+-----+-----+-----+-----+ | 1/2 | 11: | 108 | 58 | 80 | 20 | 98. | 117 | 62 | | 21. | 1.5 | 52. | | | 1/2 | 20: | | mmH | bpm | rpm | 5 F | | in | | 399 | 2 | 4 % | | | 016 | 00 | mmH | g | | | | lbs | | | 4 | m2 | | | | | [...] | F | | 25 | | 77 | 462 | 4 % | | | 015 | 00 | mmH | g | | | | lbs | in | | kg/ | | | | | | PM | g | | | | | | | | m2 | m | | | +-----+-----+-----+-----+-----+-----+-----+-----+-----+----+-----+-----+-----+-----+ | 12/ | 9:4 | 130 | 80 | 100 | 16 | 98. | 116 | 62. | | 21. | 1.5 | 53. | 100 | | 2/2 | 2:0 | | mmH | | rpm | 3 F | | 25 | | 046 | 2 | 7 % | % | | 014 | 0 | mmH | g | bpm | | | lbs | in | | 4 | m2 | | | | | AM | g | | | | | | | | kg/ | | | | | | | | | | | | | | | m | | | | +-----+-----+-----+-----+-----+-----+-----+-----+-----+----+-----+-----+-----+-----+ | 8/2 | 2:3 | 110 | 72 | 96 | 18 | 99. | 120 | 62 | | 21. | 1.5 | 70 | 98 | | 8/2 | 3:0 | | mmH | bpm | rpm | 5 F | | in | | 95 | 431 | % | % | | 013 | 0 | mmH | g | | | | lbs | | | kg/ | | | | | | PM | g | | | | | | | | m2 | m | | | +-----+-----+-----+-----+-----+-----+-----+-----+-----+----+-----+-----+-----+-----+ | 4/1 | 8:2 | 110 | 72 | 76 | 16 | 98. | 117 | 62. | | 21. | 1.5 | 63. | 100 | | 0/2 | 4:0 | | mmH | bpm | rpm | 3 F | | 5 | | 058 | 3 | 5 % | % | | 013 | 0 | mmH | g | | | | lbs | in | | 3 | m2 | | | | | [...] 2 F | | in | | 22 | 171 | 1 % | % | | 013 | 00 | mmH | g | | | | lbs | | | kg/ | | | | | | AM | g | | | | | | | | m2 | m | | | +-----+-----+-----+-----+-----+-----+-----+-----+-----+----+-----+-----+-----+-----+ | 11/ | 9:1 | 96 | 68 | 90 | 20 | 96. | 117 | 62. | | 21. | 1.5 | 68 | 98 | | 12/ | 4:0 | mmH | mmH | bpm | rpm | 1 F | | 2 | | 262 | 3 | % | % | | 201 | 0 | g | g | | | | lbs | in | | | m2 | | | | 2 [...] father (Jayy) mother | | | | (Terra) brother Tera | + + + + [...] | | | 999 | | | 2007 | Fortune | | ALEE | | [...] M-M-R | | Not | Not | 0 [...] VARIV | | Not | Not | 0 [...] MENAC | | Intra | Not | | [...] | | Not | Not | | 1/1/0 | 999 | | | 1998 | [...] | | 999 | | st | /2004 | mune, | | jose m | [...] | [id number] | Intra | Right | | | 150 | | 3+ | 2016 | i | | ne | 9LA [...] 02/09/ | 162 | | mario | | r, | | mario | 7 [...] | + + + + | HPV (Alexxisil) | Jul 20 2012 4:04PM | | [...] + + + + | Depression | 2017 11:50AM | | + + + [...] 3:02PM | | + + + + Payers [...] | | Moda | Moda | | [id number] | | Thursday, | | | Health | Health | | | | March 29, | | | | | | | | 2009 | + + + +--------+ +---------+ + History of Encounters + + + + | Visit Date | Visit Type | Provider | + + + + | 10/27/2017 [...] | 02/23/2013 | Acute Illness | Ann LAWRENCE | [...]
--- OUTSIDE RECORDS SUMMARY | ~2019-06-25 | XMS | Clinical Summary ---
Demographics + + + | Address | [address] [address] [address] | | | [place] [address] | + + + | Home Phone | | + + + | Preferred Language | Unknown | + + + | Marital Status | Single | + + + | Gnosticist Affiliation | Unknown | + + + | Race | White | + + + | Ethnic Group | Not or | + + + Author + + + | Author | [facility] | + + + | Organization | [facility] | + + + | Address | Unknown | + + + | Phone | Unavailable | + + + Support + + + + + | Name | Relationship | Address | Phone | + + + + + | Jayy & Crystal | ECON | [address] | | | [place] | | [place], [place] | | | | | [address] | | + + + + + Care Team Providers + +------+ + | Care Wedger Machine Name | Role | Phone | + +------+ + | Ann VieiraP | PCP | | + +------+ + Source Comments EBONY is fully live on both EpicCare Ambulatory and EpicCare InPatient.[facility] Allergies + + + + + + [...] OEBB | MODA | [phone] | | [phone] | [address] | P[address] | | | OEBB | | [phone] | [phone] | | | | [place] | | esent | | [place], | | | | [place] | | | | [place] [address] | | + +--------+ +--------+ + +------+ + +--------+ +--------+ + + | Guarantor Name | Accoun | Relation to | Date | Phone | Billing Address | | | t Type | Patient | of | | | | | | | | | | + +--------+ +--------+ + + | NIKOLAS VELASQUEZ | Person | Mother | [birth year] | | [address] | | | al/Fam | | 1958 | [phone] | [place] [address] | | | romana | | | 9 (Home) | | + +--------+ +--------+ + +
--- OUTSIDE RECORDS SUMMARY | ~2019-06-25 | XMS | Encounter Summary ---
Demographics + + + | Address | [address] [address] [address] | | | [place] [address] | + + + | Home Phone | | + + + | Preferred Language | Unknown | + + + | Marital Status | Single | + + + | Hoahaoism Affiliation | Unknown | + + + | Race | White | + + + | Ethnic Group | Not or | + + + Author + + + | Author | [facility] | + + + | Organization | [facility] | + + + | Address | Unknown | + + + | Phone | Unavailable | + + + Support + + + + + | Name | Relationship | Address | Phone | + + + + + | Jayy & Crystal | ECON | [address] | | | [place] | | [place], [place] | | | | | [address] | | + + + + + Care Team Providers + +------+ + | Care Foundry Finisher Name | Role | Phone | + +------+ + | Ann Vieira | PCP | | + +------+ + Reason for Visit + + + | Reason | Comments | + + + | Echo Imaging Note | | + + + Encounter Details +--------+ + + + + | Date | Type | Department | Care Team | Description | +--------+ + + + + | 07/20/ | Results/Int | Pediatric | Narendra Peck, | Palpitations | | 2015 | erpretation | Cardiology at | MD [address] | (Primary Dx); | | | | [place] [address] | [address] | Systolic click | | | | [address] | [facility] [place] | | | | | Pediatric | [address] | | | | | [facility] | [phone] | | | | | [place], [place] | | | | | | [address] | | | | | | [phone] | | | +--------+ + + + + Social History + +-------+ +--------+------+ | Tobacco [...] recent travel history available. | + + documented as of this encounter Progress Notes Narendra Peck MD - 07/20/2014 11:00 AM PST Please see finalized results of Echocardiogram in Cards tab of chart review. documented in this encounter Plan of Treatment Not on filedocumented as of this encounter Visit Diagnoses + + | Diagnosis | + + | Palpitations - Primary | + + | Systolic click Undiagnosed cardiac murmurs | + + documented in this encounter"
--- OUTSIDE RECORDS SUMMARY | ~2019-06-25 | XMS | Encounter Summary ---
Demographics + + + | Address | [address] [address] [address] | | | [place] [address] | + + + | Home Phone | | + + + | Preferred Language | Unknown | + + + | Marital Status | Single | + + + | Jew Affiliation | Unknown | + + + | Race | White | + + + | Ethnic Group | Not or | + + + Author + + + | Author | [facility] | + + + | Organization | [facility] | + + + | Address | Unknown | + + + | Phone | Unavailable | + + + Support + + + + + | Name | Relationship | Address | Phone | + + + + + | Jayy & Crystal | ECON | [address] | | | [place] | | [place], [place] | | | | | [address] | | + + + + + Care Team Providers + +------+ + | Care Film Cutter Name | Role | Phone | + [...] | (Primary Dx); | | | | [place] [address] | [address] | Systolic click | | | | [address] | [facility] [place] | | | | | Pediatric | [address] | | | | | [facility] | [phone] | | | | | [place], [place] | | | | | | [address] | | | | | | [phone] | | | +--------+ + + + [...]
--- OUTSIDE RECORDS SUMMARY | ~2019-06-25 | XMS ---
Demographics + + + | Address | [address] | | | [place] [address] | + + + | Home Phone | | + + + | Preferred Language | Unknown | + + + | Marital Status | Never | + + + | Worship Affiliation | Unknown | + + + | Race | White | + + + | Ethnic Group | Not or | + + + Author + + + | Author | [facility] | + + + | Organization | [facility] | + + + | Address | [address] | | | [place] [address] | + + + | Phone | | + + + Care Team Providers + + + + | Care Supervisor Vegetable Farming Name | Role | Phone | + [...] + + + | fluoxetine 20 | 09/15/2017 | 03/14/2018 | TAKE 1 CAPSULE | | | mg oral capsule | | | BY MOUTH EVERY | | | | | | EVENING FOR 30 | | | | | | DAYS. for 30 | | | | | [...] | | e | | +-----+-----+-----+-----+-----+-----+-----+-----+-----+----+-----+-----+-----+-----+ | 3/2 | 4:2 [...] | | 25 | | 77 | 5 | 4 % | | | 015 | 00 | mmH | g | | | | lbs | in | | kg/ | m2 | | | | | PM | [...] | | 25 | | 046 | 202 | 7 % | % | | 014 | 0 | mmH | g | bpm | | | lbs | in | | 4 | | | | | | AM [...] | | in | | 95 | 4 | % | % | | 013 | 0 | mmH | g | | | | lbs | | | kg/ | m2 | | | | | PM | g | | | | | | | | m2 | | | | +-----+-----+-----+-----+-----+-----+-----+-----+-----+----+-----+-----+-----+-----+ | 4/1 | 8:2 | 110 | 72 | 76 | 16 | 98. | 117 | 62. | | 21. | 1.5 | 63. | 100 | | 0/2 | 4:0 | | mmH | bpm | rpm | 3 F | | 5 | | 058 | 298 | 5 % | % | | [...] | | in | | 22 | 2 | 1 % | % | | [...] | | 2 | | 262 | 261 | % | % | | 201 | 0 | g | g | | | | lbs | in | | | | | | | 2 | AM [...] (Jayy) mother | | | | (Crystal) Tera | + + + + History [...] 0 | 0 | 999 | | oskar | /2005 [...] | 1/1/0 | 999 | | | 002 | [...] | Left | 07/20/ | 08/20/ | | | | 2012 | & | [...] | Left | 07/20/ | 08/20/ | | | 2012 | & | [...] | | + + + + | Benedictoricharselenea | Sep 16 2016 4:47PM | | [...] 4:22PM | | + + + + Payers [...] | | Moda | Moda | | [id number] | | Thursday, | | | Health | Health | | | | March 29, | | | | | | | | 2009 | + + + +--------+ +---------+ + History of Encounters + + + + | Visit Date | Visit Type | Provider | + + + + | 09/15/2017 | Consult | Kandace Martin MD | + + + + | 03/19/2017 | Consult | Kandace Martin MD | + + + + | 09/16/2016 | Consult | Kandace Martin MD | + + + + | 05/19/2016 | Walk In | Nurse Nurse | + + + + | 03/19/2016 | Consult | Kandace Mratin MD | + + + + | [...] | 02/23/2013 | Acute Illness | Ann Chin [facility] | + + + + | [...] + + + + | 08/11/2011 | Appt | Kandace Martin MD | + + + + | 04/08/2010 | Walk In | Nurse Nurse | + + + +"
--- OUTSIDE RECORDS SUMMARY | ~2019-06-25 | XMS ---
Demographics + + + | Address | [address] | | | [place] [address] | + + + | Home Phone | | + + + | Preferred Language | Unknown | + + + | Marital Status | Never | + + + | Oriental Orthodox Affiliation | Unknown | + + + | Race | White | + + + | Ethnic Group | Not or | + + + Author + + + | Author | [facility] | + + + | Organization | [facility] | + + + | Address | [address] | | | [place] [address] | + + + | Phone | | + + + Care Team Providers + + + + | Care Tip Length Checker Name | Role | Phone | + [...] + + + + | pseudoephedrine | 03/19/2017 | | take 1 tablet | | | [...] | | Moda | Moda | | [id number] | | Thursday, | | | Health [...] | 05/30/2014 | Acute Illness | Ann Neely Isha [facility] | + + + + | 03/24/2014 | Walk In | Nurse Nurse | + + + + | 02/23/2013 | Acute Illness | Ann Neely Isha [facility] | + + + + | [...] + | 04/29/2012 | Acute Illness | Knadace Martin MD | + + + + | 08/11/2011 | Same Day Appt | Kandace Martin MD | + + + + | 04/08/2010 | Walk In | Nurse | + + + +"
--- OUTSIDE RECORDS SUMMARY | ~2019-06-25 | XMS ---
Demographics + + + | Address | [address] | | | [place] [address] | + + + | Home Phone | | + + + | Preferred Language | Unknown | + + + | Marital Status | Never | + + + | Adventism Affiliation | Unknown | + + + | Race | White | + + + | Ethnic Group | Not or | + + + Author + + + | Author | [facility] | + + + | Organization | [facility] | + + + | Address | [address] | | | [place] [address] | + + + | Phone | | + + + Care Team Providers + + + + | Care Pet Care Associate Name | Role | Phone | + [...] .25 | in | | 08 | 122 | 4 % | % | | 012 | 0 | mmH | g | | | | | | | kg/ | | | | | | AM | g | | | | | lbs | | | m2 | m | | | +-----+-----+-----+-----+-----+-----+-----+-----+-----+----+-----+-----+-----+-----+ | 2/1 | [...] | | | 999 | | | 1997 | Enter | | Enter | | [...] MENAC | | Intra | Not | 1/1/0 | | 999 | | tra | [...] | | Moda | Moda | | [id number] | | Thursday, | | | Health [...] | 07/20/2012 | Walk In | Nurse | + + + + | [...]
--- OUTSIDE RECORDS SUMMARY | ~2019-06-25 | XMS | Encounter Summary ---
Demographics + + + | Address | [address] [address] [address] | | | [place] [address] | + + + | Home Phone | | + + + | Preferred Language | Unknown | + + + | Marital Status | Single | + + + | Congregation Affiliation | Unknown | + + + | Race | White | + + + | Ethnic Group | Not or | + + + Author + + + | Author | [facility] | + + + | Organization | [facility] | + + + | Address | Unknown | + + + | Phone | Unavailable | + + + Support + + + + + | Name | Relationship | Address | Phone | + + + + + | Jayy & Crystal | ECON | [address] | | | [place] | | [place], [place] | | | | | [address] | | + + + + + Care Team Providers + +------+ + | Care Utility Pipe Layer Name | Role | Phone | + +------+ + | Ann Vieira | PCP | | + +------+ + Reason for Referral Diagnostic Testing (Routine) +--------+--------+ + + + + | Status | Reason | Specialty | Diagnoses / | Referred By | Referred To | | | | | Procedures | Contact | Contact | +--------+--------+ + + + + | Closed | | Pediatric | Diagnoses | Liv | Shanthi Echo | | | | Cardiology | Systolic | Narendra Cortes, | Lab D[address] | | | | | click | [address] | [address] | | | | | Procedures | [place] | Mailcode: | | | | | [address]ACI | [address] | [address] | | | | | C | [place], [place] | [place] | | | | | ECHOCARDIOGR | [address] | [place], [place] | | | | | AM, PEDS | Phone: | [address] | | | | | | [phone] | Phone: | | | | | | Fax: | [phone] | | | | | | [phone] | Fax: | | | | | | | [phone] | +--------+--------+ + + + + Reason for Visit Intake Referral (Routine) +--------+ + + + + + | Status | Reason | Specialty | Diagnoses / | Referred By | Referred To | | | | | Procedures | Contact | Contact | +--------+ + + + + + | Closed | Specialty | Pediatric | Diagnoses | [facility], | Ped | | | Services | Cardiology | | Ann Chase, | Cardiology | | | Required | | Palpitations | [facility] | [address] | | | | | | SPECIALISTS | [place] | | | | | | OF [place] | Mailcode: | | | | | | [address] | | | | | | [address] | [place] | | | | | | [place], | [place], [place] | | | | | | [place] [address] | [address] | | | | | | Phone: | Phone: | | | | | | [phone] | [phone] | | | | | | Fax: | Fax: | | | | | | [phone] | [phone] | +--------+ + + + + + Encounter Details +--------+---------+ + + + | Date | Type | Department | Care Team | Description | +--------+---------+ + + + | 07/20/ | Office | Pediatric | Narendra Peck, | Systolic click | | 2014 | Visit | Cardiology at | [address] | (Primary Dx); Chest | | | | [place] [address] | pain; Palpitation | | | | [address] | [place], [place] | | | | | Pediatric | [address] | | | | | SpecialiSts | [phone] | | | | | [place], [place] | | | | | | [address] | | | | | | [phone] | | | +--------+---------+ + + + Social History + +-------+ [...] + + documented as of this encounter Last Filed Vital Signs + + + [...] | | + + + + + documented in this encounter Progress Notes Narendra Peck MD - 07/19/2014 2:26 PM PSTFormatting of this note might be different fr om the original. Patient name: Oralia [place] Date of : 1995 [facility] in [place] 07/19/2014 Oralia Barrera is a 18 year 9 month female who was seen in consultation on 2014 in the pediatric cardiology clinic in [place]. She was referred by Ann galeana for the evaluation of multiple complaints. Beginning 3 years ago, she has had problems with the following symptoms. 1) Fluttering sensation that causes her to catch her breath, few seconds, at rest or with a ctivity. 2) Occasional slow heart beat, once every 2 weeks causes her to catch her breath. Lasts sec onds. 3) Occasional faster heart beat, once every 2 weeks, she checked her heart rate and it was 114bpm. 4) "Stabbing" sensation, left mid chest, 4-5/10, up to 30 seconds, better with moving and t aking a deep breath. She wore a 48hr Holter monitor in April 2012 and recorded symptoms while wearing the mon itor in the diary. She has had no episodes of syncope/loss of consciousness, edema, cyanosis, difficulty breat evelyn, or persistent cough. She is active and is not having difficulty keeping up with peers . She is gaining weight normally. Allergies Allergen Reactions Codeine Rash Current Outpatient Prescriptions Medication Sig NORGESTIMATE-ETHINYL ESTRADIOL (SPRINTEC, 28, ORAL) Take by mouth. No current facility-administered medications for this visit. Past medical/surgical history: No hospitalizations or surgeries. Sees a therapist for anxi ety. Family history: Dad with irregular heart beat starting at the age of 50. PGGF with [place] befo re 52 (likely smoker). There is no family history of congenital heart disease or sudden une xplained . Social history: Lives with mom, dad, and one sibling. Is currently in 11th grade. There i s no smoke exposure in the home. Review of systems: Wears contacts. Constipation. No significant headaches, seizures, heari ng difficulties, difficulty swallowing, episodes or recurrent vomiting, diarrhea, bone or abbie int issues, significant skin abnormalities, abnormal bruising/bleeding. Physical exam: Ht 1.575 m (5' 2") (20%, Z = -0.83), Wt 53.184 kg (117 lb 4 oz) (42%, Z = -0.21), BP 128/64 , Pulse 76, RR 16, SpO2 99%, BMI 21.44 kg/(m^2). General: Acyanotic, awake, alert, in no apparent distress, well nourished, cooperative wit h the exam. HEENT: Atraumatic, normocephalic, with moist mucous membranes. Good dentition. Neck: Supple without lymphadenopathy, no JVD. Lungs: Clear to auscultation bilaterally without increased work of breathing. Cardiac: PMI normal, regular rate and rhythm, no lift/heave/thrill, normal S1, normal S2 w ith physiologic splitting, no murmur, click at the apex, or gallop. Abdomen: Positive bowel sounds without masses, tenderness, or distention, no hepatomegaly or splenomegaly. Extremities: Warm and well perfused without clubbing, cyanosis, or edema, 2+ distal pulse s, normal radial and femoral pulses without upper extremity to lower extremity delay. Musculoskeletal: No erythema, induration, or nodules, no evidence of joint effusion. Skin: Unremarkable without significant rashes or lesions. Holter 48hr 04/29/12: (strips reviewed) Sinus rhythm with HR 47-187bpm (avg 83bpm). Rare ventricular ectopy. Rare supraventricular ectopy. No episodes of SVT or VT. At times of patient symptoms of "chest tightness", "hea rt beat faster", and "lil skip", no significant rhythm abnormalities detected. EK-lead revealed sinus rhythm with a ventricular rate of 85bpm. [place] interval 120msec , QRS duration 92msec, QTc 435msec. [place] 75degrees (nl). No ventricular hypertrophy. This is a normal EKG for age. Echocardiogram: 1. Normal left ventricular size and normal systolic function. 2. No significant valve regurgitation or stenosis. 3. No significant intracardiac shunting noted. 4. Unobstructed aortic arch. Diagnosis: 1) Benign palpitations, with normal 48hr Holter 04/29/12 2) Precordial catch, non-cardiac chest pain 3) Click on exam with normal echo Impression/Plan: Oralia has a normal EKG, echocardiogram, and an unremarkable Holter in 2012. Her symptoms a re consistent with benign palpitations and non-cardiac chest pain. 1) From a cardiovascular standpoint, she has no activity restrictions. 2) SBE (antibiotic) prophylaxis is not needed based on the most recent AHA guidelines. I have not set up a return visit for Oralia. Should she develop new cardiovascular signs or symptoms, I would be happy to see her again in the future. Please feel free to contact me w ith any questions regarding Oralia's visit. Narendra Peck MD Affiliate Training Officer Division of Pediatric Cardiology [facility] [place] documented in this e ncounter Plan of Treatment Not on filedocumented as of this encounter Procedures + +--------+ + + + | Procedure Name | Priori | Date/Time | Associated Diagnosis | Comments | | | ty | | | | + +--------+ + + + | OUTSIDE CARDIOLOGY | | 07/19/2014 | | Results for this | | | | 12:00 AM | | procedure are in the | | | | PST | | results section. | + +--------+ + + + | OUTSIDE CARDIOLOGY | | 07/19/2014 | | Results for this | | | | 12:00 AM | | procedure are in the | | | | PST | | results section. | + +--------+ + + + | TRANSTHORACIC | Routin | 07/19/2014 | Systolic click | Results for this | | ECHOCARDIOGRAM, PEDS | e | 12:00 AM | | procedure are in the | | | | PST | | results section. | + +--------+ + + + documented in this encounter Results OUTSIDE CARDIOLOGY (07/19/2014 12:00 AM PST) + + + | Narrative | Performed At | + + + | | | + + + OUTSIDE CARDIOLOGY (07/19/2014 12:00 AM PST) + + + | Narrative | Performed At | + + + | | | | | | + + + + + | Procedure Note | + + | Jeffry Hsu - 10/18/2014 10:54 AM PDT | + + TRANSTHORACIC ECHOCARDIOGRAM, BETY (07/19/2014 12:00 AM PST) + + + | Narrative | Performed At | + + + | | | | | | + + + + + | Procedure Note | + + | Jeffry Hsu - 07/20/2014 11:32 AM PST | + + documented in this encounter Visit Diagnoses + + | Diagnosis | + + | Systolic click - Primary Undiagnosed cardiac murmurs | + + | Chest pain Chest pain, unspecified | + + | Palpitation Palpitations | + + documented in this encounter
--- OUTSIDE RECORDS SUMMARY | ~2019-06-25 | XMS | Encounter Summary ---
Demographics + + + | Address | [address] [address] [address] | | | [place] [address] | + + + | Home Phone | | + + + | Preferred Language | Unknown | + + + | Marital Status | Single | + + + | Adventism Affiliation | Unknown | + + + | Race | White | + + + | Ethnic Group | Not or | + + + Author + + + | Author | [facility] | + + + | Organization | [facility] | + + + | Address | Unknown | + + + | Phone | Unavailable | + + + Support + + + + + | Name | Relationship | Address | Phone | + + + + + | Jayy & Crystal | ECON | [address] | | | [place] | | [place], [place] | | | | | [address] | | + + + + + Care Team Providers + +------+ + | Care Human Resources Department Supervisor Name | Role | Phone | + [...] | | | | | click | [address] | [address] | | | | | Procedures | [place] | Mailcode: | | | | | [address] | [address] | [address] | | | | | C | [place], [place] | [place] | | | | | ECHOCARDIOGR | [address] | [place], [place] | | | | | AM, PEDS | Phone: | [phone] | | | | | | [phone] | Phone: | | | | | | Fax: | [phone] | | | | | | [phone] | Fax: | | | | | | | [phone] | +--------+--------+ + + + + Reason [...] | | Required | | Palpitations | [facility] | [address] | | | | | | SPECIALISTS | [place] | | | | | | OF [place] | Mailcode: | | | | | | [address] | [address] | | | | | | [address] | [place] | | | | | | [place], | [place], [place] | | | | | | [place] [address] | [address] | | | | | | Phone: | Phone: | | | | | | [phone] | [phone] | | | | | | Fax: | Fax: | | | | | | [phone] | [phone] | +--------+ + + + + + Encounter Details +--------+---------+ + + + | Date | Type | Department | Care Team | Description | +--------+---------+ + + + | 07/20/ | Office | Pediatric | Narendra Peck, | Systolic click | | 2014 | Visit | Cardiology at | [address] | (Primary Dx); Chest | | | | [place] [address] | pain; Palpitation | | | | [address] | [place], [place] | | | | | Pediatric | [address] | | | | | SpecialiSts | [phone] | | | | | [place], [place] | | | | | | [address] | | | | | | [phone] | | | +--------+---------+ + + + [...] name: Oralia [place] Date of : 1995 [facility] in [place] 07/19/2014 Oralia Barrera is a 18 year 9 month female who was seen in consultation on 2014 in the pediatric cardiology clinic in [place]. She was referred by Ann galeana for [...] at the age of 52. PGGF with [place] befo re 52 (likely smoker). There is [...] rhythm with a ventricular rate of 85bpm. [place] interval 120msec , QRS duration 92msec, QTc 435msec. [place] 75degrees (nl). No ventricular hypertrophy. This is [...] regarding Oralia's visit. Narendra Peck MD Affiliate Clinical Staff Educator Division of Pediatric Cardiology [facility] [place] documented in this e ncounter Plan of [...]
--- OUTSIDE RECORDS SUMMARY | ~2019-06-25 | XMS ---
Demographics + + + | Address | [address] | | | [place] [address] | + + + | Home Phone | | + + + | Preferred Language | Unknown | + + + | Marital Status | Never | + + + | Faith Affiliation | Unknown | + + + | Race | White | + + + | Ethnic Group | Not or | + + + Author + + + | Author | [facility] | + + + | Organization | [facility] | + + + | Address | [address] | | | [place] [address] | + + + | Phone | | + + + Care Team Providers + + + + | Care Plant Technical Specialist Name | Role | Phone | + [...] | | Mod[place] | [place]a | | [id number] | | Thursday, | | | Health [...]
[2019-06-25] MEDS ORDERED: SARAFEM20 MG PO (22:42)
== END 2019-06-26 02:21 | disposition home or self-care (01) ==
LOC: ED 20:39
DX: K52.9 Noninfective gastroenteritis and colitis, unspecified (principal); F32.9 Major depressive disorder, single episode, unspecified; Z79.899 Other long term (current) drug therapy; Z88.5 Allergy status to narcotic agent
CPT/HCPCS: 80053; 81001; 83690; 84703; 85025; 96374; 96375; 96376; 99284-25; J2270; J2405; J7030